=== PATIENT | male | born 1990 | race Two or more races ===

== ENCOUNTER 2017-10-28 09:05 | Emergency (ER) | payer OTHER ==
[~2017-10-28] VITALS: Ht 167.6 cm; Wt 68.0 kg
[~2017-10-28 09:05] MED LIST: ORPH100T PO
== END 2017-10-28 13:56 | disposition home or self-care (01) ==
LOC: ER 09:05
DX: K52.9 Noninfective gastroenteritis and colitis, unspecified (principal)